=== PATIENT | male | born 1930 | race Caucasian/White ===

== ENCOUNTER 2018-06-28 12:30 | Outpatient (CLI) | payer MEDICARE, OTHER ==
[~2018-06-28 12:30] MED LIST: ACID1TAB4 PO; CHOL400T15 PO; CLON0.1T PO; DOCU-141 PO; FINA5TAB4 PO; FLUT1DIS3 HHN; FURO-145 PO; LEVO750T21 PO; PANT40TA2 PO; POTA10CA43 PO; TERA5CAP4 PO
== END 2018-06-28 23:59 ==
LOC: WOU 12:30
PROVIDERS: ATTEND Surgery
DX: I78.1 Nevus, non-neoplastic (principal); L85.3 Xerosis cutis; R26.2 Difficulty in walking, not elsewhere classified; D69.2 Other nonthrombocytopenic purpura; I10 Essential (primary) hypertension
CPT/HCPCS: G0463; Z7610